=== PATIENT | male | born 1940 | race Caucasian/White ===

== ENCOUNTER 2016-05-20 06:01 | Day surgery (SDC) | payer MEDICARE, OTHER ==
[2016-05-20] MEDS ORDERED: LACTATED RINGERS 1,000 ML ONE (06:15)
[2016-05-20] MEDS ORDERED: PROPOFOL 200 MG/20 ML VIAL IV ONE (07:00)
[2016-05-20] MEDS ORDERED: LIDOCAINE 1% 10 ML VIAL INJ ONE (07:00)
[2016-05-20] MEDS ORDERED: MIDAZOLAM INJ 5 MG/5 ML VIAL ONE (07:49)
[2016-05-20] MEDS ORDERED: fentaNYL CITRATE INJ 50 MCG/ML AMP ONE (07:50)
--- NOTE | 2016-05-20 08:54 | OP ---
DATE OF PROCEDURE: 05/20/16 PREOPERATIVE DIAGNOSIS: 1. Change in caliber of stool. 2. Colon cancer screen. POSTOPERATIVE DIAGNOSIS: 1. Lewis diverticulosis coli. PROCEDURE: 1. Colonoscopy. SURGEON: Angus Sneed MD. ANESTHESIA: MAC by Michael Tadeo CRNA. ESTIMATED BLOOD LOSS: None. COMPLICATIONS: None apparent. TECHNIQUE: After informed consent was obtained from the patient, the patient was taken to the Endoscopy Suite and put in the left lateral decubitus position. After adequate IV sedation was obtained, a digital rectal exam was performed which revealed decreased sphincter tone, no intraluminal masses, and a smooth, 1+, anodular prostate. The colonoscope was then passed with good visualization all the way through the colon. The bowel prep was good. The sigmoid was extremely long and redundant and it was difficult to navigate. The patient had moderate to severe diverticulosis throughout the colon. This was more dense in the sigmoid area. This made navigation a little tedious, but we were finally able to reach the cecum, which was identified by the presence of the ileocecal valve and appendiceal orifice. The scope was then withdrawn slowly over the next 10 to 12 minutes and a good look at the entire colonic mucosa was obtained. There were no polyps, masses or other mucosal lesions identified other than the diverticular disease. The patient was noted to have diverticulosis in every region of the colon examined today. The scope was removed. The patient tolerated the procedure well. The patient was transported to the outpatient area in good condition. He will followup on an as needed basis. He is encouraged to consume a high fiber diet. It would also be in his best interest to limit intake of nuts and seeds. #[id number] [facility]
[2016-05-20 09:05] VITALS: BP 124/79; TEMP 98.1; O2SAT 95
== END 2016-05-20 09:15 | disposition home or self-care (01) ==
LOC: AMB 06:01
PROVIDERS: ATTEND Family Medicine
DX: Z12.11 Encounter for screening for malignant neoplasm of colon (principal); R19.5 Other fecal abnormalities; K57.30 Diverticulosis of large intestine without perforation or abscess without bleeding; E11.9 Type 2 diabetes mellitus without complications; I10 Essential (primary) hypertension; K21.9 Gastro-esophageal reflux disease without esophagitis; E78.00 Pure hypercholesterolemia, unspecified; J44.9 Chronic obstructive pulmonary disease, unspecified; Z88.0 Allergy status to penicillin; Z79.899 Other long term (current) drug therapy
CPT/HCPCS: 00810; 82948; G0121; J2250; J3010; J3490; J7120

== ENCOUNTER → 2017-06-02 | Outpatient (CLI) | payer MEDICARE, OTHER | LOC: GMAJ 10:24 | PROVIDERS: ATTEND Family Medicine | DX: Z12.5 Encounter for screening for malignant neoplasm of prostate (principal) ==

== ENCOUNTER → 2017-09-16 | Outpatient (CLI) | payer MEDICARE, OTHER | LOC: GMAJ 12:52 | PROVIDERS: ATTEND Family Medicine | DX: M25.461 Effusion, right knee (principal) ==

== ENCOUNTER 2017-11-08 20:44 | Emergency (ER) | payer MEDICARE, OTHER ==
[2017-11-08] MEDS ORDERED: TETANUS,DIPHTHERIA,PERTUSSIS 1 EA SYG IM ONE (21:26)
--- NOTE | 2017-11-08 21:31 | ED.PDOC ---
History of Present Illness - General Time Seen by Provider: 11/08/17 21:00 Source: patient Exam Limitations: no limitations - History of Present Illness Initial Comments: PT WAS AT HOME, WORKING ON HIS LAWNMOWER IN THE OFF POSITION. LAWNMOWER FELL FROM THE LIFT IT WAS PLACED UPON. THE BLADE HIT HIS L FOREARM AND CAUSED A LACERATION . PT STATES LAWNMOWER WAS DIRTY. STATES TDAP > 5 YRS AGO AND UNCERTAIN WHEN HAD IT. (WILL GIVE IN ER.) Occurred: just prior to arrival Severity: severe Pain Location: upper extremity Method of Injury: direct blow Improving Factors: nothing Worsening Factors: nothing Loss of Consciousness: no loss of consciousness Associated Symptoms (Fall): denies symptoms Allergies/Adverse Reactions: Allergies Penicillin G Allergy (Verified 12/15/14 12:57) Home Medications: Ambulatory Orders Glyburide 5 mg PO DAILY 02/15/16 Metformin HCl 500 mg PO BID 02/15/16 Lisinopril 20 mg PO QPM 05/18/16 Fenofibric Acid [Trilipix] 11/08/17 Sulfa/Trimeth 800/160 (Ds) Tab [Bactrim DS Tab] 1 unit PO BID #14 tab 11/09/17 Review of Systems - Review of Systems Constitutional: States: no symptoms reported EENTM: States: no symptoms reported Respiratory: States: no symptoms reported Cardiology: States: no symptoms reported Gastrointestinal/Abdominal: States: no symptoms reported Genitourinary: States: no symptoms reported Musculoskeletal: Denies: joint pain, muscle pain Skin: States: see HPI, lesions Neurological: Denies: paresthesia, tingling, tremors Endocrine: States: no symptoms reported Hematologic/Lymphatic: States: no symptoms reported All other Systems: Reviewed and Negative Past Medical History (General) - Patient Medical History Hx Seizures: No Hx Stroke: No Hx Dementia: No Hx Asthma: No Hx of COPD: No Hx Cardiac Disorders: No Hx Congestive Heart Failure: No Hx Pacemaker: No Hx Hypertension: Yes Hx Thyroid Disease: No Hx Diabetes: Yes Hx Gastroesophageal Reflux: No Hx Renal Disease: No Hx Cancer: No Hx of HIV: No Hx Hepatitis C: No Hx MRSA: Yes MRSA Source:: Wound - Vaccination History Hx Tetanus, Diphtheria Vaccination: Yes - 2-3 years Hx Influenza Vaccination: Yes Hx Pneumococcal Vaccination: No - Social History Hx Tobacco Use: Yes Hx Alcohol Use: Yes - seldom Hx Substance Use: No Hx Substance Use Treatment: No Hx Depression: No Hx Physical Abuse: No Hx Emotional Abuse: No Hx Suspected Abuse: No Family Medical History - Family History Mother Living Status: Hx Family Diabetes: Yes Physical Exam - Physical Exam General Appearance: Alert, Well Nourished Head Injury: no evidence of injury Eye Exam: bilateral normal ENT Exam: no evidence of ENT injury Neck Exam: full range of motion, normal inspection Extremity Exam: normal range of motion, other - 4.8 CM DEEP CURVED LACERATION WITH FLAP OF POSTEROLATERAL FOREARM, INTO MUSCLE BUT NOT TO BONE. EXTENSOR AND FLEXOR TENDONS IN TACT. Neurologic: no motor/sensory deficits, alert, normal mood/affect Skin Exam: other - PER EXTREMITY EXAM. - Krys Coma Score Best Eye Response ([place]): (4) open spontaneously Best Verbal Response ([place]): (5) oriented Best Motor Response ([place]): (6) obeys commands [place] Total: 15 Progress - Progress Progress: 11/09/17 01:45 7.9 CM L FOREARM LAC REPAIR. IT WAS A COMPLEX REPAIR DUE TO: EXTENSIVE DEBRIDEMENT OF AVULSED, DEVITALIZED EPIDERMIS USING SHARP SCISSORS. A LARGE SKIN FLAP THAT HAD TO BE RE-APPROXIMATED. IRREGULAR CONTOUR OF LACERATION. CONTAMINATED WOUND (DIRTY LAWNMOWER). A TRIPLE LAYER CLOSURE OF 1. A DEEP POCKET INSIDE THE FOREARM MUSCLE (8 SUTURES, 3-0 VICRYL), 2. INTERMEDIATE LAYER OF SUBDERMAL FAT AND FASCIA (6 SUTURES, 3-0 VICRYL), 3. SUPERFICIAL SKIN LAYER ( 7.9 CM LENGTH, UNINTERRUPTED USING 3-0 PROLENE ALONG A JAGGED, IRREGULAR CONTOUR ). 11/09/17 01:52 PENALLERGIC, THUS RX'D BACTRIM PPX DUE TO EXTENSIVENESS OF WOUND AND BEING A CONTAMINATED WOUND. Procedures - Laceration/Wound Repair Left Upper Anterior Lateral Arm Wound Length (cm): 7.9 Wound's Depth, Shape: into muscle, irregular, flap, stellate, contused tissue Wound Explored: contaminated - DIRT Irrigated w/ Saline (cc's): 250 Betadine Prep?: No - HIBICLENZ X 2 Anesthesia: Lidocaine w/ Epi Volume Anesthetic (cc's): 20 Wound Debrided: extensive Wound Repaired With: sutures Suture Size/Type: 3:0, prolene Number of Sutures: 1 - 7.9 CM UNINTERRUPTED Layer Closure?: Yes Deep Layer Suture Size/Type: 3:0, vicryl Number Deep Layer Sutures: 14 Sterile Dressing Applied?: Yes Splint Applied?: No Sling Applied?: No Departure - Departure Clinical Impression: Laceration of forearm, left Qualifiers: Encounter type: initial encounter Qualified Code(s): S51.812A - Laceration without foreign body of left forearm, initial encounter Disposition: Discharge to Home or Self Care Condition: Good Instructions: How to Care for a Laceration After Repair Diet: resume usual diet Activity: increase activity as tolerated Referrals: Angus Sneed MD [Primary Care Provider] - 1-2 Weeks Prescriptions: Sulfa/Trimeth 800/160 (Ds) Tab [Bactrim DS Tab] 1 unit PO BID #14 tab Home Medications: Ambulatory Orders Glyburide 5 mg PO DAILY 02/15/16 Metformin HCl 500 mg PO BID 02/15/16 Lisinopril 20 mg PO QPM 05/18/16 Fenofibric Acid [Trilipix] 11/08/17 Sulfa/Trimeth 800/160 (Ds) Tab [Bactrim DS Tab] 1 unit PO BID #14 tab 11/09/17 Additional Instructions: Please see your regular Dr or ER to remove the sutures in 12 - 14 days. Please leave the dressing on until tomorrow night. Then twice per day clean by : washing with soap and water, applying a liberal amount of antibiotic ointment to the wound be and sutures, and covering with a large bandaid or telfa non- stick pad. Continue this process for 2 weeks until you see your doctor.
[2017-11-08] MEDS ORDERED: CHLORHEXIDINE GLUCONATE 4 % 15 ML UD TOP ONE (21:54)
[2017-11-08] MEDS ORDERED: LIDOCAINE 1% W/ EPINEPHRINE 20 ML VIAL INJ ONE (21:59)
[2017-11-09] MEDS ORDERED: CHLORHEXIDINE GLUCONATE 4 % 15 ML UD TOP ONE (00:37)
[2017-11-09] MEDS ORDERED: SULFA/TRIMETH 800/160 (DS) TAB 1 EA TAB PO ONE (01:44)
[2017-11-09] MEDS ORDERED: NEOMYCIN-BACITRACIN-POLYMYXIN 0.9 GM UD TOP ONE (01:44)
[2017-11-09 01:55] VITALS: BP 111/80; TEMP 97.2; O2SAT 96
== END 2017-11-09 02:05 | disposition home or self-care (01) ==
LOC: ER 20:44
DX: S56.922A Laceration of unspecified muscles, fascia and tendons at forearm level, left arm, initial encounter (principal); E11.9 Type 2 diabetes mellitus without complications; I10 Essential (primary) hypertension; Z23 Encounter for immunization; Z88.0 Allergy status to penicillin; Z79.899 Other long term (current) drug therapy; Z79.84 Long term (current) use of oral hypoglycemic drugs; Z87.891 Personal history of nicotine dependence; W20.8XXA Other cause of strike by thrown, projected or falling object, initial encounter; Y93.89 Activity, other specified; Y92.009 Unspecified place in unspecified non-institutional (private) residence as the place of occurrence of the external cause

== ENCOUNTER 2019-03-23 05:36 | Day surgery (SDC) | payer MEDICARE, OTHER ==
[2019-03-23] MEDS ORDERED: LIDOCAINE 1% 10 ML VIAL INJ ONE (07:00)
[2019-03-23] MEDS ORDERED: PROPOFOL 200 MG/20 ML VIAL IV ONE (07:00)
[2019-03-23] MEDS ORDERED: LACTATED RINGERS 1,000 ML ONE (07:20)
[2019-03-23] MEDS ORDERED: KETAMINE HCL 100 MG/ML VIAL ONE (09:22)
--- NOTE | 2019-03-23 10:46 | OP ---
DATE OF PROCEDURE: 03/23/19 PREOPERATIVE DIAGNOSIS: 1. Change in bowel habits. POSTOPERATIVE DIAGNOSIS: 1. Colonic polyps. 2. Diverticulosis, both left and right side. PROCEDURE: 1. Complete colonoscopy with biopsy times 2, one 2 mm polyp in the distal cecum and at 30 cm, a hyperplastic appearing polyp, approximately 2.2 mm. SURGEON: Angus Car MD COMPLICATIONS: None. ESTIMATED BLOOD LOSS: None. CONDITION: Stable. PLAN: Discharge. INDICATION: As stated. PROCEDURE: General anesthesia was induced in the lateral position. Digital rectal exam was normal. The colonoscope was introduced and passed to the proximal transverse colon and with multiple attempts and pressure, we could not get it beyond, so we then put him on his back. After a bit of withdrawal, getting rid of that loop, we were able to advance and see the cecum. We could not intubate the terminal ileum. No significant polyps were seen here. Upon withdrawal, there was a polyp identified at the distal cecum which was excised. Upon withdrawal, again we saw diverticulosis on the right side. Transverse colon was clean. On further withdrawal, a small polyp was seen at about 30 cm. In fact, there were two hyperplastic appearing polyps in the same area that were sent with the same specimen. The air was aspirated. The scope was withdrawn. He was awakened and taken to Recovery to be discharged. #[id number] cc: Angus Sneed MD [facility]
[2019-03-23 12:10] VITALS: TEMP 97.5
[2019-03-23 12:12] VITALS: BP 111/65; O2SAT 95
== END 2019-03-23 11:50 | disposition home or self-care (01) ==
LOC: AMB 05:36
PROVIDERS: ATTEND Surgery
DX: R19.4 Change in bowel habit (principal); D12.0 Benign neoplasm of cecum; K63.5 Polyp of colon; K57.30 Diverticulosis of large intestine without perforation or abscess without bleeding; I10 Essential (primary) hypertension; E11.9 Type 2 diabetes mellitus without complications; J44.9 Chronic obstructive pulmonary disease, unspecified; M19.90 Unspecified osteoarthritis, unspecified site; E78.00 Pure hypercholesterolemia, unspecified; K21.9 Gastro-esophageal reflux disease without esophagitis; Z88.0 Allergy status to penicillin; Z87.891 Personal history of nicotine dependence; Z79.84 Long term (current) use of oral hypoglycemic drugs; Z79.899 Other long term (current) drug therapy
CPT/HCPCS: 00811; 36416; 45380; 82948; 88305; J3490; J7120